=== PATIENT | male | born 1995 | race Hispanic/Latino ===

== ENCOUNTER 2024-01-14 20:49 | Emergency (ER) | payer OTHER, SELFPAY ==
--- OUTSIDE RECORDS SUMMARY | 2024-01-14 20:52 | XMS REPORT | Continuity of Care Document ---
Author Name Unknown Address [address] [place] [address] thconnect Address [address] [place] [address] [address] [place] [address] Care Team Providers Care News Clerk Name Role Phone BRIAN GUPTA Attending Clinician Unavailab le Allergies, Adverse Reactions, Alerts Allergy Name Allergy Type Status Severity Reaction(s) Onset Date Inactive Date Treating Clinician Comments Source NO KNOWN ALLERGIE S Drug Class Active [facility] Encounters Start Date/Time End Date/Time Encounter Type Admission Type Attending Clinicians Care Facility Care Department Encounter ID Source 2020-05-17 17:40:00 2020-05-17 17:40:00 Outpatient R BRIAN GUPTA [facility] [id number] [facility]
[2024-01-14] MEDS ORDERED: ONDANSETRON 4 MG/2 ML VIAL ONE (21:21)
[2024-01-14] MEDS ORDERED: MORPHINE 4 MG/ML SYR ONE (21:22)
[2024-01-14] MEDS ORDERED: NA CHLORIDE 0.9% 1,000 ML ONE (21:22)
[2024-01-14 21:35] LABS: Absolute Basophils 0.1 K/uL (0-0.5); Absolute Lymphocytes (CBC) 1.5 K/uL (0.7-4.9); Absolute Monocytes 0.7 K/uL (0.1-1.3); Absolute Neutrophil 11.4 K/uL (1.8-8.0); Basophils % 0.7 % (0-1.3); Eosinophils % 0.3 % (0-4.4); Hematocrit 39.4 % (39.6-49.0); Hemoglobin 12.9 g/dL (13.6-17.9); Lymphocytes % 10.7 % (15.3-44.8); MCH 26.3 pg (27.0-35.0); MCHC 32.6 g/dL (32.0-36.0); MCV 80.5 fL (80-100); MPV 8.2 fL (7.6-11.3); Monocytes % 4.8 % (3.3-12.3); Neutrophils % 83.5 % (41.7-73.7); Nucleated Red Blood Cells % 0.1 % (0-0); Platelets 247 thou/uL (152-406); Red Cell Distribution Width 14.1 % (12.1-15.2)
[2024-01-14 21:45] LABS: Albumin 3.9 g/dL (3.4-5.0); Albumin/Globulin Ratio 1.1 (1.1-1.8); Anion Gap 10.5 mEq/L (5.0-15.0); Bilirubin Total 0.6 mg/dL (0.2-1.0); Globulin 3.4 g/dL (2.3-3.5); Potassium 3.5 mEq/L (3.5-5.1); Protein, Total 7.3 g/dL (6.4-8.2)
--- NOTE | 2024-01-14 21:51 | RAD REPORT ---
EXAM DESCRIPTION: CT - Stone Protocol - 01/14/2024 9:43 pm CLINICAL HISTORY: Flank pain. left abd/flank pain COMPARISON: <Comparisons> TECHNIQUE: Axial images were obtained without oral or IV contrast. Lack of contrast limits solid org an and vascular assessment. The [id number] spans the entirety of the system partially obscuring uppermost abdomen and lung bases. Coronal reformatted images were obtained and reviewed. All CT scans are performed using dose optimization technique as appropriate and may include automated exposure control or mA/KV adjustment according to patient size. FINDINGS: The lower lung mayberry are clear. Imaged portions of the liver and spleen show no suspicious findings on non-contrast imaging. The panc reas and adrenal glands are normal. No pathologic lymphadenopathy in the abdomen or pelvis. 5 mm stone is present at the left UVJ with mild left hydronephrosis. Additional 3 mm stone is seen le ft kidney. No right-sided stone. No bowel obstruction, free air, free fluid or abscess. Normal appendix noted. No significant bony abnormality. IMPRESSION: 5 mm stone is seen distal left ureter resulting in mild left hydronephrosis and hydroure ter.
[2024-01-14] MEDS ORDERED: KETOROLAC 30 MG/ML INJ ONE (23:32)
[2024-01-14] MEDS ORDERED: TAMSULOSIN 0.4 MG SR CAP ONE (23:32)
[2024-01-15] MEDS ORDERED: ONDANSETRON 4 MG/2 ML VIAL ONE
[2024-01-15 00:01] LABS: Sqamous Epithelial None Seen /HPF (None Seen); Urine Bacteria None Seen /HPF (<20); Urine Bilirubin NEGATIVE (Negative); Urine Blood 2+ (Negative); Urine Clarity Extremely Turbid (Clear); Urine Color Light-Yellow (Yellow); Urine Culture Reflex Order NOT NEEDED; Urine Glucose NEGATIVE (Negative); Urine Ketones 1+ (Negative); Urine Microscopic Reflex YN ORDER UMIC; Urine Nitrite NEGATIVE (Negative); Urine Protein TRACE (Negative); Urine RBC >50 /HPF (None Seen); Urine Urobilinogen Normal (Normal); Urine WBC <5 /HPF (<5); Urine pH 8.5 (5.0-7.0)
--- NOTE | 2024-01-15 00:04 | EDPHYS ---
Physician Documentation [facility] Name: Trenton Burk Age: 28 yrs Sex: Male : 1995 Arrival Date: 01/14/2024 Time: 20:49 Bed 8 Private MD: ED Physician Fabian Fournier HPI: 01/13 21:25 This 28 yrs old Male presents to ER via Wheelchair with complaints of kb Nausea/Vomiting, Abdominal Pain. 21:25 Pt is a 28 year old male who presents for left sided abd pain that started this kb morning, resolved then came back around 1700 this evening. Reports associated nausea and vomiting. Denies diarrhea, fever. States he does feel like he is not urinating completely. No aggravating or alleviating factors. . Historical: - Allergies: 21:03 No Known Allergies; cm10 - PMHx: 21:03 Anxiety; cm10 - PSHx: 21:03 None; cm10 - Immunization history:: Adult Immunizations up to date. - Infectious Disease History:: Denies. - Social history:: Smoking status: Reported history of juuling and/or vaping. ROS: 21:27 Constitutional: As per HPI kb Exam: 21:27 Constitutional: This is a well developed, well nourished patient who is awake, alert, kb and in no acute distress. Head/Face: Normocephalic, atraumatic. ENT: Moist Mucous membranes Cardiovascular: Regular rate Respiratory: Respirations even and unlabored. No increased work of breathing. Talking in full sentences Skin: Warm, dry with normal turgor. Normal color. MS/ Extremity: Pulses equal, no cyanosis. Neurovascular intact. Full, normal range of motion. Neuro: Awake and alert, GCS 15, oriented to person, place, time, and situation. Moves all extremities. Normal gait. 21:27 Abdomen/GI: Inspection: abdomen appears normal, Bowel sounds: normal, Palpation: soft, in all quadrants, moderate abdominal tenderness, in the left upper quadrant and left lower quadrant, 21:27 Back: CVA tenderness, that is mild, is noted on the left, Vital Signs: 21:02 BP 131 / 79; Pulse 79; Resp 16; Temp 97.5; Pulse Ox 100% ; Weight 70.31 kg; Height 5 cm10 ft. 8 in. ; Pain 10/10; 21:40 BP 133 / 89; Pulse 78; Resp 17 S; Pulse Ox 100% on R/A; ha1 22:00 BP 126 / 85; Pulse 79; Resp 17 S; Pulse Ox 100% on R/A; ha1 23:00 BP 122 / 75; Pulse 68; Resp 17 S; Pulse Ox 99% on R/A; ha1 01/14 00:00 BP 128 / 85; Pulse 71; Resp 17 S; Pulse Ox 97% on R/A; ha1 01/13 21:02 Body Mass Index 23.57 (70.31 kg, 172.72 cm) cm10 01/13 21:02 Pain Scale: Adult cm10 MDM: 01/13 20:53 Patient medically screened. kb 21:27 Differential diagnosis: Nonspecific abd pain, diverticulitis, kidney stone. Data reviewed: vital signs, nurses notes. 01/14 00:02 Counseling: I had a detailed discussion with the patient and/or guardian regarding the historical points, exam findings, and any diagnostic results supporting the discharge/admit diagnosis, lab results, radiology results, the need for outpatient follow up, a urologist, to return to the emergency department if symptoms worsen or persist or if there are any questions or concerns that arise at home. 00:02 I considered the following discharge prescriptions or medication management in the emergency department Antibiotics: At this time antibiotics are not recommended. 00:08 Response to treatment: the patient's symptoms have resolved after treatment, the patient's pain is gone. 01/13 21:19 Order name: Urinalysis w/ reflexes; Complete Time: 00:01 kb 01/13 21:53 Order name: CBC with Automated Diff EDDC 01/13 21:53 Order name: Comprehensive Metabolic Panel [facility] 01/13 21:53 Order name: Lipase EDDC 01/13 21:53 Order name: Stone Protocol EDDC 01/13 21:16 Order name: IV Start; Complete Time: 21:20 kb Administered Medications: 01/13 21:26 Drug: NS 0.9% IV 1000 ml IV at 1000 ml once Route: IV; Rate: 1000 ml; Site: right cp4 antecubital; 22:30 Follow up: Response: No adverse reaction; IV Status: Completed infusion cp4 21:26 Drug: Ondansetron IVP 4 mg IVP once; over 2 minutes Route: IVP; Site: right antecubital;cp4 21:40 Follow up: Response: No adverse reaction; Nausea is decreased cp4 21:26 Drug: morphine IVP or IV 4 mg IVP once over 4 mins Route: IVP; Infused Over: 4 mins; cp4 Site: right antecubital; 21:30 Follow up: Response: No adverse reaction; Pain is decreased cp4 23:40 Drug: Ketorolac IVP 15 mg IVP once Route: IVP; Site: right antecubital; 1 01/14 00:15 Follow up: Response: No adverse reaction cp4 01/13 23:40 Drug: Flomax PO 0.4 mg PO once Route: PO; ha1 01/14 00:15 Follow up: Response: No adverse reaction cp4 01/13 23:57 Drug: Ondansetron IVP 4 mg IVP once; over 2 minutes Route: IVP; Site: right antecubital;1 01/14 00:15 Follow up: Response: No adverse reaction cp4 Disposition: : Co-signature as Attending Physician, Fabian Fournier MD I agree with the assessment and joey plan of care. Disposition Summary: 01/15/24 00:03 Discharge Ordered Notes: Location: Home kb Condition: Stable kb Diagnosis - Calculus of kidney with calculus of ureter kb Followup: kb - With: Emergency Department - When: As needed - Reason: Worsening of condition Followup: kb - With: Private Physician - When: 2 - 3 days - Reason: Recheck today's complaints, Continuance of care, Re-evaluation by your physician Followup: kb - With: Richie Farah MD - When: 2 - 3 days - Reason: Recheck today's complaints Discharge Instructions: - Discharge Summary Sheet kb - Kidney Stones, [id number] kb - Dietary Guidelines to Help Prevent Kidney Stones kb Forms: - Medication Reconciliation Form kb - Antibiotic Education kb - Prescription Opioid Use kb - Patient Portal Instructions kb - Leadership Thank You Letter kb Prescriptions: - Flomax 0.4 mg Oral capsule - take 1 capsule ORAL route daily for 10 days; 10 capsule; Refills: 0, Product kb Selection Permitted - Zofran 4 mg Oral tablet - take 1 tablet ORAL route every 6 hours As needed; 12 tablet; Refills: 0, kb Product Selection Permitted - Diclofenac Sodium 75 mg Oral tablet, delayed release (enteric coated) - take 1 tablet ORAL route 2 times per day As needed; 30 tablet; Refills: 0, kb Product Selection Permitted - Tramadol 50 mg Oral Tablet - take 1 tablet ORAL route every 8 hours as needed; 12 tablet; Refills: 0, kb Product Selection Permitted Signatures: Dispatcher [employer] EDSindy Coleman, Fabian Bragg MD MD cha Ayala, Heidy RN RN ha1 Ml Cazares RN RN cm10 Elise Andre 4 Corrections: (The following items were deleted from the chart) 01/13 21:54 21:54 Urinalysis+U.LAB.BRZ ordered. EDDC EDMS
--- NOTE | 2024-01-15 00:04 | ER ---
Nurse's Notes [facility] Name: Trenton Burk Age: 28 yrs Sex: Male : 1995 Arrival Date: 01/14/2024 Time: 20:49 Bed 8 Private MD: Diagnosis: Calculus of kidney with calculus of ureter Presentation: 01/13 21:02 Chief complaint: Patient states: Left sided abdominal pain onset today. Pt also reports cm10 vomiting. Coronavirus screen: Client denies travel out of the [place] in the last 14 days. At this time, the client does not indicate any symptoms associated with coronavirus-19. Ebola Screen: Patient denies travel to an Ebola-affected area in the 21 days before illness onset. No symptoms or risks identified at this time. Initial Sepsis Screen: Does the patient meet any 2 criteria? No. Patient's initial sepsis screen is negative. Does the patient have a suspected source of infection? No. Patient's initial sepsis screen is negative. Risk Assessment: Do you want to hurt yourself or someone else? Patient reports no desire to harm self or others. Onset of symptoms was January 14, 2024. 21:02 Method Of Arrival: Wheelchair cm10 21:02 Acuity: MALU 3 cm10 Triage Assessment: 21:04 General: Appears in no apparent distress. uncomfortable, Behavior is calm, cooperative. cm10 Neuro: No deficits noted. Level of Consciousness is awake, alert, obeys commands, Oriented to person, place, time, situation, Appropriate for age. Respiratory: No deficits noted. Airway is patent Respiratory effort is even, unlabored, Respiratory pattern is regular, symmetrical. Historical: - Allergies: 21:03 No Known Allergies; cm10 - PMHx: 21:03 Anxiety; cm10 - PSHx: 21:03 None; cm10 - Immunization history:: Adult Immunizations up to date. - Infectious Disease History:: Denies. - Social history:: Smoking status: Reported history of juuling and/or vaping. Screenin:13 [facility] ED Fall Risk Assessment (Adult) History of falling in the last 3 months, ha1 including since admission No falls in past 3 months (0 pts) Confusion or Disorientation No (0 pts) Intoxicated or Sedated No (0 pts) Impaired Gait No (0 pts) Mobility Assist Device Used No (0 pt) Altered Elimination No (0 pt) Score/Fall Risk Level 0 - 2 = Low Risk Oriented to surroundings, Maintained a safe environment, Educated pt \T\ family on fall prevention, incl call for assistance when getting out of bed, Hourly rounding (assess needs \T\ fall precautionary measures) done. Abuse screen: Denies threats or abuse. Denies injuries from another. Nutritional screening: No deficits noted. Tuberculosis screening: No symptoms or risk factors identified. Assessment: 21:05 General: Appears uncomfortable, Behavior is calm, cooperative. Pain: Complains of pain ha1 in left lower quadrant Pain does not radiate. Pain currently is 8 out of 10 on a pain scale. Quality of pain is described as aching, crampy. Neuro: Level of Consciousness is awake, alert, obeys commands, Oriented to person, place, time, situation. Cardiovascular: Capillary refill < 3 seconds Patient's skin is warm and dry. Respiratory: Airway is patent Trachea midline Respiratory effort is even, unlabored, Respiratory pattern is regular, symmetrical. GI: Abdomen is flat, non-distended, Bowel sounds Abdomen is tender to palpation in left lower quadrant Reports lower abdominal pain, nausea, vomiting. : No signs and/or symptoms were reported regarding the genitourinary system. 22:10 Reassessment: Patient and/or family updated on plan of care and expected duration. Pain ha1 level reassessed. Patient is alert, oriented x 3, equal unlabored respirations, skin warm/dry/pink. 23:00 Reassessment: Patient and/or family updated on plan of care and expected duration. Pain ha1 level reassessed. Patient is alert, oriented x 3, equal unlabored respirations, skin warm/dry/pink. Patient states feeling better. Patient states symptoms have improved. 23:45 Reassessment: reports vomiting. Notified care provider Victorino. received verbal order ha1 to administer 4 mg of Zofran. Vital Signs: 21:02 BP 131 / 79; Pulse 79; Resp 16; Temp 97.5; Pulse Ox 100% ; Weight 70.31 kg; Height 5 cm10 ft. 8 in. ; Pain 10/10; 21:40 BP 133 / 89; Pulse 78; Resp 17 S; Pulse Ox 100% on R/A; ha1 22:00 BP 126 / 85; Pulse 79; Resp 17 S; Pulse Ox 100% on R/A; ha1 23:00 BP 122 / 75; Pulse 68; Resp 17 S; Pulse Ox 99% on R/A; ha1 01/14 00:00 BP 128 / 85; Pulse 71; Resp 17 S; Pulse Ox 97% on R/A; ha1 01/13 21:02 Body Mass Index 23.57 (70.31 kg, 172.72 cm) cm10 01/13 21:02 Pain Scale: Adult cm10 ED Course: 01/13 20:52 Patient arrived in ED. gm2 20:53 [facility] kb 20:53 Fabian Fournier MD is Attending Physician. kb 21:03 Triage completed. cm10 21:05 Arm band placed on Patient placed in an exam room, on a stretcher. cm10 21:05 Patient has correct armband on for positive identification. Placed in gown. Bed in low ha1 position. Call light in reach. Side rails up X 1. Adult w/ patient. 21:05 Client placed on continuous cardiac and pulse oximetry monitoring. NIBP monitoring ha1 applied. Door closed. Noise minimized. Warm blanket given. Pillow given. 21:20 Clarissa Pardo, RN is Primary Nurse. ha1 21:22 Inserted saline lock: 20 gauge in right antecubital area, using aseptic technique. ha1 Blood collected. Flushed with 10 mL NS. 21:53 Stone Protocol In Process Unspecified. EDMS 01/14 00:03 Richie Farah MD is Referral Physician. kb 00:12 No provider procedures requiring assistance completed. ha1 00:14 Provided Education on: kidney stones. cp4 00:14 intact, bleeding controlled, No redness/swelling at site. Pressure dressing applied. cp4 Administered Medications: 01/13 21: Drug: NS 0.9% IV 1000 ml IV at 1000 ml once Route: IV; Rate: 1000 ml; Site: right cp4 antecubital; 22:30 Follow up: Response: No adverse reaction; IV Status: Completed infusion cp4 : Drug: Ondansetron IVP 4 mg IVP once; over 2 minutes Route: IVP; Site: right antecubital;cp4 21:40 Follow up: Response: No adverse reaction; Nausea is decreased cp4 21:26 Drug: morphine IVP or IV 4 mg IVP once over 4 mins Route: IVP; Infused Over: 4 mins; cp4 Site: right antecubital; 21:30 Follow up: Response: No adverse reaction; Pain is decreased cp4 23:40 Drug: Ketorolac IVP 15 mg IVP once Route: IVP; Site: right antecubital; ha1 01/14 00:15 Follow up: Response: No adverse reaction cp4 01/13 23:40 Drug: Flomax PO 0.4 mg PO once Route: PO; ha1 01/14 00:15 Follow up: Response: No adverse reaction cp4 01/13 23:57 Drug: Ondansetron IVP 4 mg IVP once; over 2 minutes Route: IVP; Site: right antecubital;1 01/14 00:15 Follow up: Response: No adverse reaction cp4 Medication: 01/13 22:14 VIS not applicable for this client. [facility] Outcome: 01/14 00:03 Discharge ordered by . kb 00:14 Discharged to home ambulatory, cp4 00:14 Condition: stable 00:14 Discharge instructions given to patient, Instructed on discharge instructions, follow up and referral plans. medication usage, Demonstrated understanding of instructions, follow-up care, medications, Prescriptions given X 4, 00:18 Patient left the ED. cp4 Signatures: Dispatcher [employer] EDSindy Coleman, JOANNA-C [employer] MANAGER-Clarissa Macias RN RN ha1 Ml Cazares RN RN cm10 Elise Andre cp4 Kenia Duff [facility]
[2024-01-15 00:35] VITALS: TEMP 97.5
[2024-01-15 00:48] VITALS: BP 128/85; O2SAT 97
== END 2024-01-15 00:18 | disposition home or self-care (01) ==
LOC: ER 20:49
DX: N20.2 Calculus of kidney with calculus of ureter (principal); F17.290 Nicotine dependence, other tobacco product, uncomplicated
CPT/HCPCS: 36415; 74176; 76377; 80053; 81001; 83690; 85025; 96361; 96374; 96375; 99284; J2405; J7030